=== PATIENT | female | born 1985 | race Caucasian/White ===

== ENCOUNTER 2016-09-17 13:31 | Emergency (ER) | payer SELFPAY ==
[~2016-09-17 13:31] MED LIST: ALPRAZOLAM PO; AMOXIL; BACTRIM DS TABL1 TA1 PO; BACTRIM DS TABL1 TAB PO; BENADRYL PO; CIPRO PO; CYMBALTA PO; DEPAKOTE ER PO; DEPAKOTE PO; DEPO-TESTADIOL10 ML INJ; DOXYCYCLINE PO; IBUPROFEN PO; LORTAB PO; MACROBID100 MG PO; MEDROL DOSE PAK; MEDROL PO; NO MEDICATIONS; PEN-VEE K PO; PENICILLIN PO; PERCOCET PO; PERCOCET10 PO; PHENERGAN PO; PRENATAL1 TA1 PO; PYRIDIUM PO; REGLAN10 MG PO; ROBITUSSIN COU118 ML PO; TYLENOL #3 PO; TYLOX1 CAP 5/50 PO; ULTRAM PO; VICODIN 5/500 T1 TAB PO; VICODIN PO; WELLBUTRIN XL PO; ZOVIRAX800 MG PO
[2016-09-17] MEDS ORDERED: METHADONE PO (13:40)
[2016-09-17 15:33] LABS: AMPHETAMINE POS (NEG); BARBITURATES NEG (NEG); BENZODIAZEPINES NEG (NEG); COCAINE NEG (NEG); MARIJUANA POS (NEG); OPIATES NEG (NEG); TRICYCLIC ANTIDEPRESSANTS NEG (NEG); U METHADONE POS (NEG)
== END 2016-09-17 16:30 | disposition home or self-care (01) ==
LOC: SED 13:31
PROVIDERS: Emergency Medicine
DX: N92.6 Irregular menstruation, unspecified (principal); F19.10 Other psychoactive substance abuse, uncomplicated; F17.210 Nicotine dependence, cigarettes, uncomplicated
CPT/HCPCS: 80307; 84703; 99282